=== PATIENT | male | born 1995 | race Caucasian/White ===

== ENCOUNTER 2018-01-27 21:21 | Emergency (ER) | payer SELFPAY ==
[2018-01-27 21:23] VITALS: BP 125/68; PULSE 67; RESP 16; TEMP 36.7; O2SAT 98; BMI 22.8
--- NOTE | 2018-01-27 22:07 | ED.DCSUM_ITS ---
- ER Visit Summary Date of Service: 01/27/18 Chief Complaint: Redness of both eyes, watering History of Present Illness: The patient is a 22 M 2 day history increasing redness both eyes. Post wear glasses and contacts however does not. Last eye exam a year ago. Denies photophobia. No foreign body sensations. Use significant other's eye ointment with worsening symptoms. No pain. No other complaints. Physical Examination: General: Alert and oriented ?3, no acute distress HEENT: Normocephalic, atraumatic. Pupils equal reactive to light. Moist mucosa membranes. Visual acuity: 20/40 OD, 20/50 OS, 20/50 OU. Diffuse erythema of the sclera bilaterally. No hyphema. Fluorescein with no uptake. Neck: supple, nontender. Cardiovascular: Regular rate and rhythm, no murmurs Respiratory: Normal breath sounds, symmetric, no distress Abdomen: Soft, nontender, nondistended Extremities: Nontender, no edema, pulses intact ?4 Neuro: no focal neurological deficits. Test Results: [] Emergency Department Course and Treatment: Patient shows no abrasions. Exam consistent with conjunctivitis. Placed on antibiotic drops. He will follow-up with his eye doctor for reevaluation. Treatment Plan: [] Disposition: Discharge Impression: Bilateral conjunctivitis This note was generated with [employer] dictation software. It may contain incorrect words, spelling, and punctuation that were not noted in review of the chart prior to signing ED Disposition - Plan for ED Patient: Disposition: Home or Assisted Living Chief Complaint: Eye Problem Diagnosis: Bilateral conjunctivitis Instructions: ED Allergic Conjunctivitis Referrals: Care Physician,No Primary [Primary Care Provider] - Additional Instructions: Use eyedrops as dispense, twice a day for 7 days. Follow-up with your eye doctor for reevaluation.
[2018-01-27 23:00] VITALS: RESP 16
== END 2018-01-27 23:00 | disposition home or self-care (01) ==
PROVIDERS: Emergency Provider Emergency Medicine
DX: H10.9 Unspecified conjunctivitis (principal); Z72.0 Tobacco use
CPT/HCPCS: 99283

== ENCOUNTER 2019-09-08 15:47 | Emergency (ER) | payer SELFPAY ==
[2019-09-08 15:48] VITALS: BP 124/76; PULSE 85; RESP 14; TEMP 36.8; O2SAT 98; BMI 27.4
--- NOTE | 2019-09-08 16:02 | ED.DCSUM_ITS ---
History of Present Illness Chief Complaint: Lower Extremity Injury Informant: Patient Onset: Today Context: Sudden Onset Current Severity: Moderate Worsened by: movement Relieved by: rest Narrative: Patient is a 23-year-old male with no significant past medical history presenting with left great toe pain. Patient was riding his skateboard in flip- flops when he fell. He scraped up his left great toe. He has some bleeding and is worried that might be broken. Patient was on his way to work. He denies any numbness or tingling. He states his last tetanus was less than 3 years ago. Patient has been able to walk on it. He denies any other complaints at this time. Past Medical History - Allergies and Home Meds Allergies/Adverse Reactions: Allergies Penicillins Allergy (Verified 09/08/19 15:51) Anaphylaxis strawberry Adverse Reaction (Verified 09/08/19 15:51) Hives Primary Care Physician: Care Physician,No Primary [Primary Care Provider] - Past Medical History: None Surgical History: noncontributory Smoking Status: Current every day smoker Review of Systems All systems negative except as indicated Musculoskeletal: Reports: Arthralgias - Left great toe Skin: Reports: Abrasions - Left great toe Physical Exam Vital Signs/Narrative: Vital Signs Temp Pulse Resp BP Pulse Ox 09/08/19 15:48 98.3 F 85 14 124/76 H 98 Inital Vital Signs reviewed: Yes General: Well nourished, Well developed, No Acute Distress Head: Normocephalic, Atraumatic Eyes: Perrl, EOMI ENT: Moist mucous membranes, No rhinorrhea Neck: Supple, Nontender Cardiovascular: Regular rate, Regular rhythm, No murmurs Respiratory: No distress, CTA bilaterally, Chest nontender Abdomen: Soft, Nontender, Nondistended, Normal bowel sounds Back: Nontender, Normal Inspection Extremities: No edema, Tenderness - Left great toe diffusely especially with range of motion, - - No obvious deformity of the left great toe or foot Skin: Normal color, No rash, Trauma - Superficial abrasion of the left great toe, distal to the nail on dorsal aspect, no associated subungual hematoma Neurological: Alert, Oriented x3, Cranial nerves II-XII grossly intact, Normal Strength, Normal Sensation Psychological: Normal affect, Normal Mood Diagnostic/Tx/Re-eval Clinical Impression(s) from Imaging Studies Foot X-Ray 09/08/19 16:24 IMPRESSION: Normal x-ray examination of the foot. Electronically Signed: Audi Osorio, at 16:33 EDT Tel , Service support , - Medical Decision Making Evaluated for left foot injury after skateboarding accident. He has no other injuries. He is neurovascularly intact. He has no obvious deformity but does have superficial abrasions. Wound is soaked and cleansed in a mixture of Hibiclens and water. Patient's tetanus is up-to-date. X-ray obtained does not show any acute bony process. Patient is given Motrin in the emergency room. He is given a work note for today and tomorrow. He is stable for outpatient follow-up. He is instructed to take Tylenol and/or ibuprofen as needed for pain at home. Patient is counseled on signs and symptoms requiring return to the emergency room. Patient verbalizes agreement and understand this plan. Patient discharged home in stable and improved condition. ED Disposition - Plan for ED Patient: Disposition: Home or Assisted Living Diagnosis: Injury of left great toe, Abrasion, left great toe, initial encounter Instructions: CONTUSION, Foot Referrals: Care Physician,No Primary [Primary Care Provider] - Abram Huang MD [STAFF PHYSICIAN] - Additional Instructions: Return to the emergency room if you develop worsening symptoms or signs of infection. Take Tylenol or Motrin at home as needed for pain. It is okay to walk on the affected foot. Please try to keep clean.
[2019-09-08] MEDS: Ibuprofen 600 MG Tablet PO (16:20)
--- NOTE | 2019-09-08 16:24 | RAD_ITS ---
STUDY: X-RAY - LEFT FOOT CLINICAL: Male, 23 years old. TECHNIQUE: 3 view(s) of the foot. COMPARISON: None. FINDINGS: Normal talus, calcaneus, and tarsal bones. Normal visualized subtalar, talonavicular, calcaneocuboid, tarsal and tarsometatarsal articulations. Normal metatarsi. Normal metatarsophalangeal joint of the great toe. Normal tibial and fibular sesamoid bones. Normal interphalangeal joint of the great toe. Normal phalanges of the great toe. Normal second through fifth metatarsophalangeal joints. Normal interphalangeal joints and phalanges of the lesser toes. The soft tissue structures are unremarkable. RAD/Foot min 3 Views IMPRESSION: Normal x-ray examination of the foot. Electronically Signed: Audi Osorio, at 16:33 EDT Tel , Service support ,
== END 2019-09-08 17:00 | disposition home or self-care (01) ==
PROVIDERS: Emergency Provider Emergency Medicine
DX: S90.412A Abrasion, left great toe, initial encounter (principal); V00.131A Fall from skateboard, initial encounter; Y93.51 Activity, roller skating (inline) and skateboarding; Y92.9 Unspecified place or not applicable; Y99.9 Unspecified external cause status; F17.200 Nicotine dependence, unspecified, uncomplicated; Z88.0 Allergy status to penicillin
CPT/HCPCS: 73630; 99282

== ENCOUNTER 2020-11-30 19:06 | Emergency (ER) | payer SELFPAY ==
[2020-11-30 19:07] VITALS: BP 135/77; PULSE 74; RESP 14; TEMP 36.6; O2SAT 97; BMI 26.4
--- NOTE | 2020-11-30 19:15 | ED.RN ---
pt was able to wiggle his right forearm out of the [place] rodriguez cylinder and decided he didn't want to be seen. registration informed
--- NOTE | 2020-11-30 21:24 | ED.RN ---
upon arrival to ed room pt was able to pull arm out of tube and no longer wanted to be seen by physician and left
== END 2020-11-30 20:00 | disposition left against medical advice (07) ==
LOC: ED 19:16
PROVIDERS: Emergency Provider Emergency Medicine
DX: R69 Illness, unspecified (principal); Z53.21 Procedure and treatment not carried out due to patient leaving prior to being seen by health care provider

== ENCOUNTER 2022-01-24 13:22 | Emergency (ER) | payer BC, SELFPAY ==
[2022-01-24 13:22] VITALS: BP 114/74; PULSE 100; RESP 16; TEMP 36.4; O2SAT 100; BMI 19.5
--- NOTE | 2022-01-24 13:51 | EDS_ITS ---
HPI History of Present Illness Chief Complaint: Dental Narrative Narrative: Patient presents with pain and swelling of his left upper jaw from a cracked tooth that has had for quite some time. He noticed over the last few days that his left upper jaw and face has started to swell. He denies any fever or chills. No nausea or vomiting. He does vape. He states that he recently got insurance and is set up to have dental work performed but not until January, few weeks from now. He presents because of pain and swelling of a cracked tooth in his left upper jaw. PFSH PFSH Home Medications No Known/Unobtainable [No Known Home Medications] 12/16/16 [History Last Taken Unknown] clindamycin HCl [Cleocin HCl] 300 mg PO Q6H #40 cap 01/24/22 [Rx Last Taken Unknown] ibuprofen 800 mg PO Q8H PRN #20 tab 01/24/22 [Rx Last Taken Unknown] Allergy/AdvReac Type Severity Reaction Status Date / Time Penicillins Allergy Anaphylaxis Verified 01/24/22 13:24 strawberry AdvReac Hives Verified 01/24/22 13:24 Social History Smoking Status: Unknown if ever smoked ROS ROS ED ROS Narrative Constitutional: No fever, no chills. HEENT: No sore throat. No neck pain. No loss of vision. No rhinorrhea. Positive dental pain, left upper jaw. Mild swelling of face/left cheek. Cardiovascular: No chest pain. No palpitations. No pedal edema. Respiratory: No cough, no shortness of breath. Abdominal: No abdominal pain. No nausea. No vomiting. Genitourinary: No dysuria. No hematuria. Musculoskeletal: No myalgias. No arthralgias. Neurologic: No headaches. No dizziness. No lightheadedness. Skin: No rash. No change in color. Psychiatric: No depression. No anxiety. EXAM Physical Exam Narrative Exam Narrative: Afebrile. Vital signs noted. HEENT: Normocephalic. Atraumatic. PERRL, EOMI. Neck soft and supple. No point tenderness or step off. Positive dental caries/partially avulsed tooth first bicuspid left upper jaw. No Shukri angina. No fluctuance of gum. Handling secretions well. Cardiovascular: Regular rate and rhythm. No murmurs, rubs, or gallops appreciated. Respiratory: No tachypnea. Lungs clear to auscultation bilaterally. Gastrointestinal: Abdomen soft, nontender, with normoactive bowel sounds. No rebound or guarding. Neurological: Awake. Alert. Nonfocal, nonlateralizing. Skin: No rash. Normal color. No pallor. Musculoskeletal: No pedal edema. Full range of motion extremities. Const Vital Signs: 01/24/22 13:22 Temperature 97.6 F L Temperature Source Temporal Pulse Rate 100 Respiratory Rate 16 Blood Pressure 114/74 Blood Pressure Mean 87 Pulse Ox 100 Oxygen Delivery Method Room Air MDM MDM MDM Narrative Medical decision making narrative: Smoking cessation/vaping cessation was discussed. I do feel that he probably has a dental abscess. He was given presc riptions for clindamycin and for ibuprofen, given his first dose of clindamycin here in the emergency department. At this point in time, I feel he can be discharged safely home to follow-up with a dentist. Disposition is discharged home in stable condition. Discharge Plan Triage Chief Complaint: Dental ED Provider: Venkat García Dx/Rx/DC Orders Clinical Impression: Pain due to dental caries, Dental abscess Instructions: ED Dental Pain, ED Dental Abscess Facial Cellulitis Prescriptions: New clindamycin HCl [Cleocin HCl] 300 mg capsule 300 mg PO Q6H Qty: 40 RF: 0 ibuprofen 800 mg tablet 800 mg PO Q8H PRN (Reason: pain) Qty: 20 RF: 0 No Action No Known Home Medications RF: 0 Primary Care Provider: Care Physician,No Primary Referrals: Care Physician,No Primary [Primary Care Provider] - Disposition Disposition: Home, Self Care
[2022-01-24] MEDS: Clindamycin HCl 150 MG Capsule 300 MG PO (13:58)
== END 2022-01-24 14:04 | disposition home or self-care (01) ==
PROVIDERS: Emergency Provider Emergency Medicine; Visit Provider Emergency Medicine
DX: K04.7 Periapical abscess without sinus (principal); K02.9 Dental caries, unspecified; F17.290 Nicotine dependence, other tobacco product, uncomplicated
CPT/HCPCS: 99283

== ENCOUNTER 2024-01-24 16:53 | Emergency (ER) | payer BC, SELFPAY ==
[2024-01-24 16:54] VITALS: BP 113/71; PULSE 75; RESP 18; TEMP 36.6; O2SAT 99; BMI 22.7
--- NOTE | 2024-01-24 17:00 | RAD_ITS ---
EXAM: XR LEFT KNEE, 3 VIEWS CLINICAL INDICATION: pain behind left knee TECHNIQUE: Three views of the left knee. COMPARISON: No relevant prior studies available. FINDINGS: BONES/JOINTS: Unremarkable. No acute fracture. No subluxation. Normal alignment. Preservation of the joint space. No sclerotic or destructive changes observed. SOFT TISSUES: There is a radiopaque foreign body in the soft tissues posterior to the medial distal femur that measures 0.8 x 0.6 x 1.1 cm. No soft tissue swelling or gas. RAD/Knee 3 Views IMPRESSION: No acute abnormalities. There is a radiopaque foreign body in the soft tissues posterior to the knee. Electronically Signed: Saud Reynoso MD at 17:51 EST ,
--- NOTE | 2024-01-24 18:11 | ED.VIS.LOWEX ---
HPI <MEHUL Raymond - Last Filed: 01/24/24 18:23> History of Present Illness Chief Complaint: Lower Extremity Injury Narrative Narrative: 28-year-old male states for several months he has had pain behind his left knee and in the lower hamstring. It aches and hurts more with walking. He had no fall or direct injury. He has no pain in the anterior knee or lower leg. No swelling or skin changes. PFSH <MEHUL Raymond - Last Filed: 01/24/24 18:23> PFSH Medical History Marijuana use Home Medications No Known/Unobtainable [No Known Home Medications] 12/16/16 [History Last Taken Unknown] Allergy/AdvReac Type Severity Reaction Status Date / Time Penicillins Allergy Anaphylaxis Verified 01/24/24 16:54 strawberry AdvReac Hives Verified 01/24/24 16:54 Social History Smoking Status: Current every day smoker tobacco type: e-cigarettes ROS <MEHUL Raymond - Last Filed: 01/24/24 18:23> ROS ED ROS Narrative Constitutional: Negative for fever, chills. Neuro: Negative for motor/sensory dysfunction. Skin: Negative for rash. Musc: Negative for swelling, trauma. EXAM <MEHUL Raymond - Last Filed: 01/24/24 18:23> Physical Exam Narrative Exam Narrative: CONST: Patient sitting in no acute distress. EYES: Normal inspection. NECK: Normal inspection. RESP: No respiratory distress, CTAB. CVS: Regular rate and rhythm, no murmur, no gallop. SKIN: Color normal, no rash, warm, dry, intact. EXTREMITIES: Normal appearance of BLLE. Full range of motion left hip knee ankle and foot. No bony tenderness, no reproducible tenderness over the hamstrings popliteal region or calf. No palpable cords or edema. Normal strength and sensation, 2+ DP pulses. NEURO: Oriented x4. PSYCH: Normal affect. Const Vital Signs: 01/24/24 16:54 01/24/24 18:40 Temperature 97.8 F 98.6 F Temperature Source Temporal Pulse Rate 75 87 Respiratory Rate 18 16 Blood Pressure 113/71 120/74 Blood Pressure Mean 85 89 Pulse Ox 99 94 Oxygen Delivery Method Room Air <Venkat García MD - Last Filed: 01/24/24 20:55> Physical Exam Const Vital Signs: 01/24/24 16:54 01/24/24 18:40 Temperature 97.8 F 98.6 F Temperature Source Temporal Pulse Rate 75 87 Respiratory Rate 18 16 Blood Pressure 113/71 120/74 Blood Pressure Mean 85 89 Pulse Ox 99 94 Oxygen Delivery Method Room Air [facility] <MEHUL Raymond - Last Filed: 01/24/24 18:23> [facility] Narrative Medical decision making narrative: Patient has chronic right knee pain in the hamstring and posterior knee. No injury. Symptoms have not worsened today he just presents for evaluation. Lower extremities appear normal with no swelling or skin changes. He has full range of motion and is neurovascularly intact. On exam there is no evidence of ligamentous or meniscal injury. His area of pain seems to hide to be his knee joint and may be related to the tendons or hamstring. X-ray shows a radiopaque foreign body in the posterior knee tissues. He had a remote injury and a piece of sledgehammer metal flew into his knee. Patient was advised to take [id number] analgesia and was given an orthopedic referral and discharged in stable condition. Radiography Diagnostic Testing: Clinical Impression(s) from Imaging Studies Knee X-Ray 01/24/24 17:00 IMPRESSION: No acute abnormalities. There is a radiopaque foreign body in the soft tissues posterior to the knee. Electronically Signed: Saud Reynoso MD at 17:51 EST Reading Location ID and State: [facility] / [place] Tel , Service support , ED attending interpretation of left knee shows no acute fracture or dislocation. Metallic foreign body in the posterior knee tissues. <Venkat García MD - Last Filed: 01/24/24 20:55> [facility] Narrative Medical decision making narrative: Patient has chronic right knee pain in the hamstring and posterior knee. No injury. Symptoms have not worsened today he just presents for evaluation. Lower extremities appear normal with no swelling or skin changes. He has full range of motion and is neurovascularly intact. On exam there is no evidence of ligamentous or meniscal injury. His area of pain seems to hide to be his knee joint and may be related to the tendons or hamstring. X-ray shows a radiopaque foreign body in the posterior knee tissues. He had a remote injury and a piece of sledgehammer metal flew into his knee. Patient was advised to take [id number] analgesia and was given an orthopedic referral and discharged in stable condition. Dr. García: I have personally performed a face to face assessment of the patient and have reviewed the RAEANN Note. I performed a substantive portion of the visit including all aspects of the following. My benedict findings include: History is left posterior knee pain, chronic times of months Exam is afebrile. Vital signs noted. Positive flexion extension of left knee. Palpable dorsalis pedis pulse. Mild tenderness along medial bicipital tendon Medical Decision Making: Differential diagnosis includes tendinitis versus bursitis versus chronic knee pain. Check x-rays. X-rays interpreted by myself independently show no evidence of effusion or fracture of the left knee. Discharge. Other additions or changes: [None] History & Record Review Discussion w/independent historian: Patient Radiography Diagnostic Testing: Clinical Impression(s) from Imaging Studies Knee X-Ray 01/24/24 17:00 IMPRESSION: No acute abnormalities. There is a radiopaque foreign body in the soft tissues posterior to the knee. Electronically Signed: Saud Reynoso MD at 17:51 EST , Discharge Plan Triage Chief Complaint: Lower Extremity Injury ED Midlevel Provider: Jennifer Elma ED Provider: Venkat García Dx/Rx/DC Orders Clinical Impression: Chronic pain of left knee Instructions: Knee Pain Prescriptions: No Action No Known Home Medications Primary Care Provider: Care Physician,No Primary Referrals: Jcarlos Osuna MD [Med Staff - Active Staff] - Care Physician,No Primary [Primary Care Provider] - Activity Restrictions/Additional Instructions: Take Tylenol or Motrin as needed and follow-up with the orthopedic doctor. Disposition Disposition: Home, Self Care Discharge Date/Time: 01/24/24 18:41
[2024-01-24 18:40] VITALS: BP 120/74; PULSE 87; RESP 16; TEMP 37; O2SAT 94
== END 2024-01-24 18:41 | disposition home or self-care (01) ==
LOC: ED 18:34
PROVIDERS: Emergency Provider Emergency Medicine; Visit Provider Emergency Medicine
DX: M25.562 Pain in left knee (principal); G89.29 Other chronic pain; X58.XXXA Exposure to other specified factors, initial encounter; F17.290 Nicotine dependence, other tobacco product, uncomplicated; Z18.10 Retained metal fragments, unspecified
CPT/HCPCS: 73562; 99282

== ENCOUNTER → 2024-04-19 | Outpatient (CLI) | payer BC, OTHER, SELFPAY ==
[2024-04-19 10:10] LABS: Absolute Lymphocyte Count 3.53 X10^3/uL (0.83-4.51); Absolute Neutrophil Count 3.2 X10^3/uL (2.0-7.7); Basophil# 0.05 X10^3/uL; Basophil% 0.6 % (0-1); Eosinophil# 0.24 X10^3/uL; Eosinophils% 3.1 % (0-5); Hematocrit 41.8 % (40-54); Hemoglobin 13.3 g/dL (13.0-16.5); Lymphocyte # 3.53 X10^3/ul (0.83-4.51); Mean Corp Hgb Conc 31.8 g/dL (32-36); Mean Platelet Vol. 11.2 fl (6.2-12.0); Monocyte# 0.81 X10^3/uL; Monocyte% 10.3 % (0-10); NRBC Flagged by Analyzer 0 % (0-5); Neutrophil # 3.17 X10^3/uL (2.7-7.7); Neutrophil % 40.5 % (47-70); Platelet Count 244 K/mm3 (150-450); RBC Distribution Width SD 45.4 fl (35.1-43.9); Red Blood Count 4.75 M/mm3 (4.6-6.2); White Blood Count 7.8 K/mm3 (4.4-11.0)
[2024-04-19 11:29] LABS: Anion Gap 7 (5-15); BUN 13 mg/dL (7-18); BUN/Creat Ratio 13.6 RATIO (10-20); Calcium,Total 8.9 mg/dL (8.5-10.1); Chloride 109 mmol/L (98-107); Creatinine, Serum 0.96 mg/dL (0.70-1.30); EST Glomerular Filtration Rate 101 mL/min (>60); Est Glom Filt Rate - Afr Amer 122 mL/min (>60); Glucose 82 mg/dL (74-106); Potassium 3.7 mmol/L (3.5-5.1); Sodium Level 140 mmol/L (136-145)
== END | disposition home or self-care (01) ==
LOC: LAB 09:23
PROVIDERS: Referring Provider Physician Assistant Surgical; Visit Provider Physician Assistant Surgical
DX: Z01.812 Encounter for preprocedural laboratory examination (principal)
CPT/HCPCS: 36415; 80048; 85025

== ENCOUNTER 2025-02-16 10:01 | Emergency (ER) | payer SELFPAY ==
[2025-02-16 10:02] VITALS: BP 114/44; PULSE 75; RESP 16; TEMP 36.6; O2SAT 99; BMI 24.4
--- NOTE | 2025-02-16 10:20 | US_ITS ---
PROCEDURE: GALLBLADDER (USGB), N/A REASON FOR EXAM: PAIN RUQ, N/V COMPARISON: None FINDINGS: Liver: Unremarkable. 15.1 cm in length. Gallbladder: No visualized stones, sludge, wall thickening or pericholecystic fluid. Reportedly, sonographic [facility] was negative. Biliary tree: CBD is borderline mildly dilated for patient age at 7 mm. Pancreas: Partially obscured by shadowing bowel gas, grossly unremarkable as visualized. Right kidney: Unremarkable. 11.0 cm in length. Other: No visualized free fluid. US/Gallbladder IMPRESSION: 1. No visualized cholelithiasis or findings to suggest cholecystitis. 2. Borderline mild dilatation of the CBD for patient age. Correlate with serum bilirubin and consider dedicated imaging such as MRCP, as indicated. 3. Additional description as above. Reading Location: [id number]
--- NOTE | 2025-02-16 10:24 | ED.VIS.GI ---
HPI HPI - GI History of Present Illness Chief Complaint: Abd Pain Informant: patient Narrative Narrative: 29-year-old male has been having vomiting and abdominal pain after meals for the past 3 weeks. This is the first time he has been seen for this. He states oftentimes it is an hour or so after he eats and routinely he is then vomiting and having right upper quadrant pain. The pain does not radiate to his shoulder or his back but sometimes radiates up to his mid chest after vomiting. He states is the same throbbing pain that he gets in the right upper quadrant that is in his lower midsternal chest. He denies palpitations, dyspnea, changes in urination. Sometimes he has some loose diarrhea that is dark brown but he denies any melena or blood. No hematemesis. No history of abdominal surgeries. PFSH PFSH Medical History Marijuana use Home Medications ?Medication ?Instructions ?Recorded ?Last Taken ?Type dicyclomine 20 mg tablet 20 mg PO Q6H PRN PRN abdominal 02/16/25 Unknown Rx discomfort #20 tabs ondansetron 8 mg disintegrating 8 mg PO Q8H PRN nausea and 02/16/25 Unknown Rx tablet vomiting #20 tabs pantoprazole 40 mg tablet,delayed 40 mg PO DAILY #30 tabs 02/16/25 Unknown Rx release Allergy/AdvReac Type Severity Reaction Status Date / Time Penicillins Allergy Anaphylaxis Verified 02/16/25 10:02 strawberry AdvReac Hives Verified 02/16/25 10:02 Surgical History S/P tonsillectomy Social History Smoking Status: Current every day smoker tobacco type: e-cigarettes ROS ROS ED Constitutional Constitutional ED: Denies chills or fever(s) Eyes Eyes: Denies change in vision or diplopia ENT ENT ED: Denies rhinorrhea or sore throat Cardiovascular Cardiovascular: Reports as per HPI and chest pain; Denies palpitations or radiating jaw, neck or arm pain Respiratory/Chest Respiratory/Chest: Denies cough or dyspnea Gastrointestinal Gastrointestinal: Reports abdominal pain, diarrhea, nausea and vomiting; Denies hematemesis, hematochezia or melena Genitourinary Genitourinary ED: Denies dysuria or hematuria Musculoskeletal Musculoskeletal: Denies back pain or neck pain Integumentary Denies abscess or rash Neurologic Neurologic: Denies headache(s), paresthesias or weakness Psychiatric Psychiatric: Denies anxiety or suicidal thoughts EXAM Physical Exam Const Vital Signs: 02/16/25 10:02 Temperature 97.9 F Temperature Source Temporal Pulse Rate 75 Respiratory Rate 16 Blood Pressure 114/44 L Blood Pressure Mean 67 Pulse Ox 99 Oxygen Delivery Method Room Air Positive well nourished and well developed General Appearance ED: well developed and NAD HEENT Reports moist mucous membranes normocephalic and atraumatic Eyes PERRL and EOMs intact bilaterally Neck full ROM and supple Resp normal respiratory effort and clear to auscultation bilaterally Cardio regular rate, regular rhythm and no murmurs GI non-distended GI Narrative: Tenderness in epigastrium and right upper quadrant, negative Mcleod's, no other areas of tenderness, no guarding or rebound. Auscultation: normoactive bowel sounds Palpation: soft Back/Spine no CVA tenderness General Back: other FROM Extremity normal to inspection General Extremety ED: Negative for edema, pulses abnormal or tenderness General Extremity: Negative for edema or pulses abnormal Neuro oriented x3, CN's II-XII intact bilaterally and no sensory deficits noted Sensorium / Orientation: awake and alert Motor Exam: strength 5/5 throughout Skin no rashes or lesions noted and no wounds MDM MDM MDM Narrative Medical decision making narrative: Labs are unremarkable including liver enzymes and lipase. Given the history, I think a gallbladder ultrasound is most appropriate imaging test that was obtained in addition. This shows no stones, no sonographic Mcleod's, there was prominent common bile duct, however his bilirubin is normal, so I do not think this is likely to be acute. He was given some medications here and is feeling better. Given this, not able to rule out the possibility of some type of chronic gallbladder issue that does not involve stones, but he does not have acute cholecystitis, and I am going to treat him empirically for GI-related etiologies that are intraluminal and he can follow-up. He does not have a PCP. He is referred to the next doctor on the unassigned list Dr. Olivas. Lab Data Attestation: I reviewed the patient's lab results. Labs: Laboratory Results - last 24 hr 02/16/25 10:49 WBC 5.5 RBC 4.64 Hgb 13.0 Hct 39.8 L MCV 85.8 MCH 28.0 MCHC 32.7 RDW Std Deviation 44.1 H RDW Coeff of Alyson 14.2 Plt Count 274 MPV 11.5 Immature Gran % (Auto) 0.200 Neut % (Auto) 56.4 Lymph % (Auto) 31.3 Toole % (Auto) 10.1 H Eos % (Auto) 0.9 Baso % (Auto) 1.1 H Absolute Neuts (auto) 3.1 Absolute Lymphs (auto) 1.73 Nucleated RBC % 0 Sodium 139 Potassium 4.0 Chloride 106 Carbon Dioxide 22.3 Anion Gap 11 BUN 10 Creatinine 0.89 Estim Creat Clear Calc 128.73 Est GFR (MDRD) Non-Af 120 BUN/Creatinine Ratio 11.0 Glucose 89 Calcium 9.3 Total Bilirubin 0.27 AST 21 ALT 15 Alkaline Phosphatase 63 Total Protein 7.1 Albumin 4.6 Globulin 2.5 Albumin/Globulin Ratio 1.9 Lipase 42 Radiography Diagnostic Testing: Clinical Impression(s) from Imaging Studies Gallbladder Ultrasound 02/16/25 10:20 IMPRESSION: 1. No visualized cholelithiasis or findings to suggest cholecystitis. 2. Borderline mild dilatation of the CBD for patient age. Correlate with serum bilirubin and consider dedicated imaging such as MRCP, as indicated. 3. Additional description as above. Reading Location: [id number] Discharge Plan Triage Chief Complaint: Abd Pain ED Provider: Mitchell Bailey Dx/Rx/DC Orders Clinical Impression: Right upper quadrant abdominal pain, Acute gastritis without bleeding Instructions: Abdominal Pain, ED Diet, Banks (Adult), ED Gastritis Ulcer No Abx Prescriptions: New ondansetron 8 mg tablet,disintegrating 8 mg PO Q8H PRN (Reason: nausea and vomiting) Qty: 20 0RF dicyclomine 20 mg tablet 20 mg PO Q6H PRN PRN (Reason: abdominal discomfort) Qty: 20 0RF pantoprazole 40 mg tablet,delayed release (DR/EC) 40 mg PO DAILY Qty: 30 0RF Primary Care Provider: Care Physician,No Primary Referrals: Giovanni Olivas MD [Med Staff - [employer] Installer] - As soon as possible Care Physician,No Primary [Primary Care Provider] - Print Language: Moldovan Disposition Disposition: Home, Self Care
[2025-02-16] MEDS: 0.9% Normal Saline (1000mL) 1,000 ML 999 ML IV (10:47)
[2025-02-16] MEDS: Ondansetron 4 MG/2 ML Vial IV (10:47)
[2025-02-16] MEDS: Ketorolac 30 MG/ML Syringe IV (10:47)
[2025-02-16 10:59] LABS: Absolute Lymphocyte Count 1.73 X10^3/uL (0.83-4.51); Absolute Neutrophil Count 3.1 X10^3/uL (2.0-7.7); Basophil# 0.06 X10^3/uL; Basophil% 1.1 % (0-1); Eosinophil# 0.05 X10^3/uL; Eosinophils% 0.9 % (0-5); Hematocrit 39.8 % (40-54); Lymphocyte # 1.73 X10^3/ul (0.83-4.51); Lymphocyte % 31.3 % (19-41); Mean Corp Hgb Conc 32.7 g/dL (32-36); Mean Corpuscular Volume 85.8 fL (80-94); Mean Platelet Vol. 11.5 fl (6.2-12.0); Monocyte# 0.56 X10^3/uL; Monocyte% 10.1 % (0-10); NRBC Flagged by Analyzer 0 % (0-5); Neutrophil # 3.12 X10^3/uL (2.7-7.7); Neutrophil % 56.4 % (47-70); Platelet Count 274 K/mm3 (150-450); RBC Distribution Width CV 14.2 % (11.6-14.6); RBC Distribution Width SD 44.1 fl (35.1-43.9); Red Blood Count 4.64 M/mm3 (4.6-6.2); White Blood Count 5.5 K/mm3 (4.4-11.0)
[2025-02-16 11:52] LABS: ALB/GLOB Ratio 1.9 RATIO (0.9-2.4); AST(SGOT) 21 U/L (<=37); Alanine Aminotransfer ALT/SGPT 15 U/L (<=46); Albumin, Serum 4.6 g/dL (3.5-5.0); Alkaline Phosphatase 63 U/L (40-129); Anion Gap 11 (5-15); BUN 10 mg/dL (4-19); Calcium,Total 9.3 mg/dL (7.6-11.0); Carbon Dioxide 22.3 mmol/L (21.0-32.0); Chloride 106 mmol/L (98-108); Creatinine, Serum 0.89 mg/dL (0.70-1.20); EST Glomerular Filtration Rate 120 (>60); Estimated Creatinine Clearance 128.73 ml/min (50-250); Globulin 2.5 g/dL (2.2-4.2); Glucose 89 mg/dL (70-99); Lipase 42 U/L (13-75); Protein, Total 7.1 g/dL (5.9-8.4); Sodium Level 139 mmol/L (133-145); Total Bilirubin 0.27 mg/dL (0.00-1.30)
[2025-02-16 12:21] LABS: Mucous, Urine 0 SEEN /hpf (<or=2+)
[2025-02-16 12:38] LABS: Color, Urine Yellow (Yellow); Glucose, Dipstick Normal (Normal); Ketone-Dipstick Negative (Negative); Leukocyte Esterase-Dipstick Negative /ul (Negative); Nitrite-Dipstick Negative (Negative); Occult Blood-Urine Negative /ul (Negative); Protein-Dipstick 15 mg/dl (Negative); Urine Bilirubin Dipstick Negative (Negative); Urine Clarity Clear (Clear); Urine Urobilinogen Normal (Normal)
[2025-02-16 13:00] LABS: Bacteria RARE /hpf (None Seen); Red Blood Cells-Urine 0-5 SEEN /hpf (0-5); White Blood Cells 0-5 SEEN /hpf (0-5)
[2025-02-16 13:01] LABS: Squamous Epithelial Cells - UA 0-5 SEEN /hpf (0-5)
[2025-02-16 13:02] VITALS: BP 117/75; PULSE 71; RESP 16; TEMP 36.1; O2SAT 100
== END 2025-02-16 13:04 | disposition home or self-care (01) ==
PROVIDERS: Emergency Provider Emergency Medicine; Visit Provider Emergency Medicine
DX: K29.00 Acute gastritis without bleeding (principal); F17.290 Nicotine dependence, other tobacco product, uncomplicated
CPT/HCPCS: 36415; 76705; 80053; 81001; 83690; 85025; 96361; 96374; 96375; 99283; A4216; J2405